=== PATIENT | male | born 1985 | race Caucasian/White ===

== ENCOUNTER 2021-02-09 21:48 | Emergency (ER) | payer SELFPAY ==
[2021-02-09 22:02] VITALS: BP 190/98; PULSE 84; RESP 15; TEMP 36.6; O2SAT 94; BMI 24.3
[2021-02-10 01:18] VITALS: BP 176/105; PULSE 74
[2021-02-10] MEDS: MECLIZINE HCL 12.5 MG TABLET 25 MG PO (01:23)
--- NOTE | 2021-02-10 04:35 | ED_ITS ---
HPI - Nausea/Vomiting/Diarrhea General Chief complaint: Nausea/Vomiting/Diarrhea Stated complaint: DIZZY HOT FLASHES THROWING UP Time Seen by Provider: 02/10/21 04:09 Source: patient Mode of arrival: Ambulatory Limitations: no limitations History of Present Illness HPI Narrative: Otherwise healthy 36-year-old gentleman presents with both vertigo and nausea present for 24 hours. Two weeks ago had an episode of vom iting diarrhea and generally feeling awful the last for up 3 days and resolved completely. 24 hours ago he woke up with diarrhea and then had episodes of vomiting diarrhea and dry heaves throughout the day. At 1 point during the day he was able to keep fluids in and began noticing that he was having more vertiginous symptoms when he was changing positions or sitting. If he was up and moving he seems to be doing well. He describes no fevers, cough, palpitations, headaches, ear pain visual changes or hearing loss. Related Data Allergies Allergy/AdvReac Type Severity Reaction Status Date / Time No Known Drug Allergies Allergy Verified 02/09/21 22:02 Review of Systems Review of Systems Narrative: Remainder of complete review of systems is otherwise unremarkable except for that included in the HPI. Patient History Social History Smoking Status: Unknown if ever smoked Smoking Status: Unknown if ever smoked alcohol intake frequency: holidays/special occasions only Substance Use Type: does not use Exam Narrative Exam Narrative: General: Alert appropriate in no acute distress, no orthostasis HEENT: Left ear is unremarkable. Right ear with dense hard wax pressed up against the tympanic membrane. No nystagmus with positional changes. Respiratory: Able to speak in full sentences, no obvious respiratory distress Cardiac: regular rate and rhythm no murmurs Skin: No obvious rashes, warm and dry Neurologic: Grossly intact no obvious asymmetries or abnormalities Psych: appropriate insight and affect, cooperative Initial Vital Signs Initial Vital Signs: Vital Signs Temperature 97.9 F 02/09/21 22:02 Pulse Rate 84 02/09/21 22:02 Respiratory Rate 15 02/09/21 22:02 Blood Pressure 190/98 H 02/09/21 22:02 Pulse Oximetry 94 02/09/21 22:02 Procedures Ear Wax Removal Right Ear: Time of procedure: 04:38 Additional Comments: Direct removal with an ear curette was attempted. Wax is firmly adhered to the tympanic membrane. Attempts at flushing with saline were ineffective. Wax was not able to be removed Course Orders Ordered: Discontinued Medications Meclizine HCl (Meclizine Hcl 12.5 Mg Tablet) 25 mg PO NOW ONE Stop: 02/10/21 01:19 Last Admin: 02/10/21 01:23 Dose: 25 mg Documented by: VILLA Ondansetron HCl (Ondansetron 4 Mg Odt Prepack) 1 bottle MISC SEEINSTR ONE Stop: 02/10/21 04:52 Last Admin: 02/10/21 05:04 Dose: 1 bottle Documented by: VILLA Vital Signs Vital signs: Vital Signs - 8 hr 02/09/21 22:02 02/10/21 01:18 Temperature 97.9 F Pulse Rate 84 74 Respiratory Rate 15 Blood Pressure 190/98 H 176/105 H Pulse Oximetry 94 MDM - Nausea/Vomiting/Diarrhea MDM Narrative Medical decision making narrative: 36-year-old gentleman likely with 2 separate issues. The vomiting and diarrhea certainly sounds viral and he is while still having some nausea able to keep some fluids down. No evidence of cardiac irregularities or acute abdominal abnormalities. The vertiginous component may well be related to the earwax densely adhered to the right tympanic membrane. Will suggest that he use some [id number]-opa-[id number] Cerumenex daily for the next week or so and then schedule appointment either with his primary care physician or urgent care to see if the rest of that wax can be removed. Regarding the nausea and vomiting, he will be given Zofran to use for the nausea and he is safe for home discharge. Discharge Plan Departure Patient Disposition: Home Clinical Impression: Nausea, Vomiting, and Diarrhea, Vertigo Cerumen impaction Qualifiers: Laterality: right Qualified Code(s): H61.21 - Impacted cerumen, right ear Instructions: Cerumen Impaction, DI for Vomiting -- Adult Activity Restrictions/Additional Instructions: Thank you for coming in today He still have earwax pressing against the tympanic membrane on the right side. You can buy nbhp-jnh-smfniec Cerumenex and put the oily drops in your right ear daily for the next week or so to loosen up that wax. You can try rinsing the wax out while your in the shower or schedule appointment with your primary care physician urgent care. You can use meclizine/Antivert as needed to help with the spinning feeling. This is dcdg-hou-csagttt and frequently sold as a seasickness medications Regarding the vomiting and diarrhea, this very much sounds like an acute virus and I suspect it will be self limited. I have given you some Zofran/ondansetron to use for nausea. If you find things are worsening rehab new symptoms, please feel free to return to the ER for further evaluation
[2021-02-10 04:50] VITALS: BP 141/89; PULSE 71; RESP 15; O2SAT 99
[2021-02-10] MEDS: ONDANSETRON 4 MG ODT PREPACK 1 BOTTLE MISC (05:04)
== END 2021-02-10 05:05 | disposition home or self-care (01) ==
PROVIDERS: Emergency Provider Emergency Medicine
DX: R42 Dizziness and giddiness (principal); R11.2 Nausea with vomiting, unspecified; R19.7 Diarrhea, unspecified; H61.21 Impacted cerumen, right ear
CPT/HCPCS: 99283

== ENCOUNTER 2023-02-05 21:45 | Emergency (ER) | payer OTHER, SELFPAY ==
[2023-02-05 21:49] VITALS: BP 151/90; PULSE 93; RESP 16; TEMP 36.5; O2SAT 99; BMI 22.8
--- NOTE | 2023-02-05 21:56 | DI.RAD.S_ITS ---
PROCEDURE: XR CHEST 2V INDICATIONS: right sided upper rib pain TECHNIQUE: 2 views of the chest were acquired. COMPARISON: None. FINDINGS: Surgical changes and devices: None. Lungs and pleura: Lungs are clear. No pleural effusions or pneumothorax. Mediastinum: Mediastinal contours are normal. Heart size is normal. Bones and chest wall: No suspicious bony abnormalities. Soft tissues appear unremarkable. IMPRESSION: 1. No acute cardiopulmonary disease. Dictated by: Codey Jeter M.D. on 02/05/2023 at 23:52 Approved by: Codey Jeter M.D. on 02/05/2023 at 23:53
[2023-02-05 22:24] LABS: Add Manual Diff / Slide Review NO; Basophils Absolute Auto 0 /uL (0-100); Basophils Percent Auto 0.6 % (0-2); Eosinophils Absolute Auto 0 /uL (0-450); Eosinophils Percent Auto 0.5 % (2-4); Hematocrit 41.7 % (41-53); Hemoglobin 14.6 g/dL (13.5-17.5); Lymphocytes Absolute Auto 1700 /uL (1100-4500); Lymphocytes Percent Auto 29.3 % (25-40); Mean Corpuscular Hemoglobin 32.3 PG (26-34); Mean Corpuscular Volume 92.5 fL (80-100); Monocytes Absolute Auto 500 /uL (0-900); Monocytes Percent Auto 9.4 % (3-14); Neutrophils Absolute Auto 3400 /uL (1500-7000); Neutrophils Percent Auto 60.2 % (50-75); Platelet Count 216 X10^3/uL (150-400); Red Blood Cell Count 4.51 X10^6/uL (4.5-5.9); Red Cell Distribution Width 13.4 % (11.6-14.8); White Blood Cell Count 5.6 X10^3/uL (4.5-11.0)
[2023-02-05 22:26] LABS: Prothrombin Time 11.6 SECONDS (10.1-12.7)
[2023-02-05 22:28] LABS: PTT Partial Thromboplastin Tim 28 SECONDS (26-36)
[2023-02-05 22:30] LABS: Alanine Aminotransferase 24 IU/L (<50); Albumin 4.4 g/dL (3.5-5.0); Albumin Globulin Ratio 1.2 (1.0-2.8); Alkaline Phosphatase 37 U/L (38-126); Aspartate Aminotransferase 26 IU/L (17-59); BUN Creatinine Ratio 18.8 (6-22); Bilirubin Total 0.5 mg/dL (0.2-1.3); Blood Urea Nitrogen 18 mg/dL (9-20); Calcium 9.2 mg/dL (8.4-10.2); Carbon Dioxide 29 mmol/L (22-32); Chloride 102 mmol/L (98-107); Creatine Kinase 97 U/L (55-170); Estimated Glomerular Filt Rate > 60 mL/min (>60); Globulin 3.6 g/dL (1.7-4.1); Glucose 124 mg/dL (70-100); HEMOLYSIS 23 (0-50); Lipase 65 U/L (23-300); Magnesium 1.9 mg/dL (1.6-2.3); Potassium 3.9 mmol/L (3.4-5.1); Sodium 137 mmol/L (137-145)
[2023-02-05 22:41] LABS: Troponin I < 0.012 ng/mL (0.01-0.034)
[2023-02-06 01:06] VITALS: O2SAT 97
[2023-02-06 01:07] VITALS: BP 119/74; PULSE 71; O2SAT 98
--- NOTE | 2023-02-06 01:25 | ED.CHESTPAIN ---
HPI - Chest Pain General Chief Complaint: Chest Pain Stated Complaint: wierd feeling under rt arm, light headed Time Seen by Provider: 02/06/23 01:14 Source: patient Mode of arrival: Ambulatory Limitations: no limitations History of Present Illness HPI narrative: Alert pleasant 38-year-old male presenting today with right-sided chest pain. He reports it started after riding his motorcycle to and from [place]. It hurts to breathe move and swallow. Has since totally subsided since being in the ED. He denies any nausea vomiting or shortness of breath although sometimes it did hurt to take a breath. He has a nonsmoker no family history of cardiac disease. He did feel nauseous but no vomiting. He is a any recent long travel. Denies any injury. Related Data Allergies Allergy/AdvReac Type Severity Reaction Status Date / Time No Known Drug Allergies Allergy Verified 02/09/21 22:02 Review of Systems Review of Systems ROS Unobtainable: All systems reviewed & are unremarkable except as noted in HPI and below Patient History Social History Smoking Status: Unknown if ever smoked Smoking Status: Unknown if ever smoked alcohol intake frequency: holidays/special occasions only Substance Use Type: does not use Exam Initial Vital Signs Initial Vital Signs: Vital Signs Temperature 97.7 F 02/05/23 21:49 Pulse Rate 93 H 02/05/23 21:49 Respiratory Rate 16 02/05/23 21:49 Blood Pressure 151/90 H 02/05/23 21:49 Pulse Oximetry 99 02/05/23 21:49 Oxygen Delivery Method Room Air 02/05/23 21:49 GENERAL: Alert pleasant well-appearing 38-year-old male and in no acute distress. HEENT: Head atraumatic,EOMI, pupils reactive, face symmetric, moist mucous membranes CARDIOVASCULAR: Regular rate and rhythm without murmurs, rubs or gallops. RESPIRATORY: Breath sounds equal bilaterally, no wheezes rales or rhonchi. ABDOMEN: Soft, nontender. Normoactive bowel sounds all 4 quadrants. No guarding or rebound. No right upper quadrant pain no epigastric pain no guarding no rebound EXTREMITIES: Normal range of motion, no clubbing or edema. Neurovascularly intact NEUROLOGICAL: Alert and oriented x4.Normal gait and speech. SKIN: Warm, dry, no laceration, no petechiae, no rashes or lesions. Scores HEART Score Heart Score history: Slightly Suspicious Heart Score EKG: Normal Heart Score Age: < 45 years old Heart Score risk factors: No known risk factors Heart Score troponin: < or = to normal limit Heart Score Total: 0 Course Orders Ordered: ED Orders 02/05/23 21:56 XR chest 2V Stat 02/05/23 21:57 EKG-12 Lead Stat 02/05/23 22:02 Complete Blood Count AUTO DIFF Stat Comprehensive Metabolic Panel Stat Lipase Stat Magnesium Stat PTT Partial Thromboplastin Carlito Stat Prothrombin Time INR Stat Troponin & CK Cardiac Panel Stat Vital Signs Vital signs: Vital Signs - 8 hr 02/06/23 01:06 02/06/23 01:07 02/06/23 01:07 Pulse Rate 71 Blood Pressure 119/74 Pulse Oximetry 97 98 Oxygen Delivery Method 02/06/23 01:30 02/06/23 01:30 Pulse Rate 58 L Blood Pressure 128/80 Pulse Oximetry 96 Oxygen Delivery Method Room Air MDM - Chest Pain Lab Data 02/05/23 22:02 02/05/23 22:02 Labs: Lab Results 02/05/23 02/05/23 02/05/23 Range/Units 22:02 22:02 22:02 WBC 5.6 (4.5-11.0) X10^3/uL RBC 4.51 (4.5-5.9) X10^6/uL Hgb 14.6 (13.5-17.5) g/dL Hct 41.7 (41-53) % MCV 92.5 (80-100) fL MCH 32.3 (26-34) PG MCHC 35.0 (30-36) % RDW 13.4 (11.6-14.8) % Plt Count 216 (150-400) X10^3/uL Neut % (Auto) 60.2 (50-75) % Lymph % (Auto) 29.3 (25-40) % [place] % (Auto) 9.4 (3-14) % Eos % (Auto) 0.5 L (2-4) % Baso % (Auto) 0.6 (0-2) % Neut # (Auto) 3400 (8849-5118) /uL Lymph # (Auto) 1700 (7873-6051) /uL [place] # (Auto) 500 (0-900) /uL Eos # (Auto) 0 (0-450) /uL Baso # (Auto) 0 (0-100) /uL PT 11.6 (10.1-12.7) SECONDS INR 1.0 (0.9-1.3) APTT 28 (26-36) SECONDS Sodium 137 (137-145) mmol/L Potassium 3.9 (3.4-5.1) mmol/L Chloride 102 (98-107) mmol/L Carbon Dioxide 29 (22-32) mmol/L BUN 18 (9-20) mg/dL Creatinine 0.96 (0.66-1.25) mg/dL Estimated GFR > 60 (>60) mL/min BUN/Creatinine Ratio 18.8 (6-22) Glucose 124 H (70-100) mg/dL Calcium 9.2 (8.4-10.2) mg/dL Magnesium 1.9 (1.6-2.3) mg/dL Total Bilirubin 0.5 (0.2-1.3) mg/dL AST 26 (17-59) IU/L ALT 24 (<50) IU/L Alkaline Phosphatase 37 L (38-126) U/L Total Creatine Kinase 97 (55-170) U/L Troponin I < 0.012 (0.01-0.034) ng/mL Total Protein 8.0 (6.3-8.2) g/dL Albumin 4.4 (3.5-5.0) g/dL Globulin 3.6 (1.7-4.1) g/dL Albumin/Globulin Ratio 1.2 (1.0-2.8) Lipase 65 (23-300) U/L Imaging Data Chest x-ray: Radiologist's Impression: PROCEDURE:? XR CHEST 2V ? INDICATIONS:? right sided upper rib pain ? TECHNIQUE:? 2 views of the chest were acquired.? ? COMPARISON:? None. ? FINDINGS:? ? Surgical changes and devices:? None.? ? Lungs and pleura:? Lungs are clear.? No pleural effusions or pneumothorax.? ? Mediastinum:? Mediastinal contours are normal.? Heart size is normal.? ? Bones and chest wall:? No suspicious bony abnormalities.? Soft tissues appear unremarkable.? ? IMPRESSION:? ? 1.? No acute cardiopulmonary disease. ? ? ? Dictated by: Codey Jeter M.D. on 02/05/2023 at 23:52 ? ? ECG Data Interpretation: Normal sinus rhythm rate 80 VT interval 152 QRS [address] changes no T-wave inversions MDM Narrative Medical decision making narrative: Patient 38-year-old male without significant past medical history presenting with right-sided pain worse with movement. He said it was not reproducible with palpation but did her certain positions for to swallow radiate up to his neck. Mild nausea no vomiting. No cardiac history heart score 0. At this time low suspicion for any acute coronary syndrome. He is had no traveling unlikely to be a pulmonary embolism. He has no right upper quadrant pain on exam but may have had a biliary attack. No elevated bilirubin liver enzymes or lipase. Non tender negative Quiroga's sinus he no need for an ultrasound at this time. However encourage patient that if he continued to have pain you may need a right upper quadrant ultrasound. Discharge Plan Departure Patient Disposition: Home Clinical Impression: Atypical chest pain Instructions: DI for Atypical Chest Pain Activity Restrictions/Additional Instructions: *You have been diagnosed with atypical chest pain *What to do: At this time if symptoms return you may need to return to the ED for further evaluation you may also require right upper quadrant ultrasound to look at your gallbladder *Continue to take medications as directed Tylenol Motrin as directed if needed for pain *Follow up with your primary care provider in 2-3 days or call [phone] *Return to ER if you should have increasing chest pain shortness of breath nausea vomiting abdominal or any new, worsening or concerning symptoms Stand Alone Forms: Patient Portal/API
[2023-02-06 01:30] VITALS: BP 128/80; PULSE 58; O2SAT 96
== END 2023-02-06 01:44 | disposition home or self-care (01) ==
PROVIDERS: Emergency Provider Emergency Medicine
DX: R07.89 Other chest pain (principal)
CPT/HCPCS: 36415; 71046; 80053; 82550; 83690; 83735; 84484; 85025; 85610; 85730; 93005; 99283; 99284

== ENCOUNTER 2024-02-11 11:28 | Emergency (ER) | payer OTHER, SELFPAY ==
[2024-02-11 11:35] VITALS: BP 134/86; PULSE 68; RESP 18; TEMP 36.8; O2SAT 96; BMI 23.0
[2024-02-11 11:54] VITALS: BP 134/85; PULSE 64; O2SAT 98
[2024-02-11 11:59] VITALS: BP 134/83; PULSE 63; RESP 14; O2SAT 98
--- NOTE | 2024-02-11 12:02 | PC.NURSE ---
patient states that he take 4 ibuprophen a day and also drinks 4-5 drinks per day. he denies a history of gallbladder issues, pancreatitis, or ulcers. He is taking prilosec for hx of gas, bloating, was supposed to have an upper GI scope but since taking prilosec.
[2024-02-11 12:11] LABS: Alanine Aminotransferase 27 IU/L (<50); Albumin 4.8 g/dL (3.5-5.0); Albumin Globulin Ratio 1.5 (1.0-2.8); Alkaline Phosphatase 32 U/L (38-126); Aspartate Aminotransferase 31 IU/L (17-59); Bilirubin Total 0.6 mg/dL (0.2-1.3); Blood Urea Nitrogen 15 mg/dL (9-20); Calcium 9.4 mg/dL (8.4-10.2); Carbon Dioxide 25 mmol/L (22-32); Chloride 106 mmol/L (98-107); Estimated Glomerular Filt Rate > 60 mL/min (>60); Globulin 3.2 g/dL (1.7-4.1); Glucose 101 mg/dL (70-100); HEMOLYSIS 16 (0-50); Lipase 70 U/L (23-300); Potassium 4.4 mmol/L (3.4-5.1); Sodium 138 mmol/L (137-145)
--- NOTE | 2024-02-11 12:21 | ED_ITS ---
HPI - Abdominal Pain General Chief Complaint: Abdominal Pain Stated Complaint: Upper right Stomach pain Time Seen by Provider: 02/11/24 12:02 Source: patient Mode of arrival: Ambulatory History of Present Illness HPI narrative: Patient here for constant right upper quadrant pain that radiates to the mid right back and up to the right shoulder. Patient has been worked up in the past for acid reflux and is on Prilosec. They were considering doing endoscopy of the stomach in the past but his symptoms resolved and it was never done. Pain is worse with drinking or eating. Has tried Motrin for pain but no improvement. Informed him not to take this if he is has acid reflux or ulcer. No black or bloody stools. No chest pain no shortness of breath no urinary complaints Related Data Previous Rx's Medication Instructions Recorded pantoprazole 40 mg tablet,delayed 40 mg PO DAILY #30 tabs 02/11/24 release (Protonix) sucralfate 1 gram tablet (Carafate) 1 g PO QAC #20 tabs 02/11/24 Allergies Allergy/AdvReac Type Severity Reaction Status Date / Time No Known Drug Allergies Allergy Verified 02/11/24 11:39 Review of Systems Review of Systems Narrative: GENERAL: negative chills, fatigue, malaise, fever, sweats. HEENT: negative sinus pain, ear pain, sore throat RESPIRATORY: negative dyspnea, cough CARDIOVASCULAR: negative chest pain, palpitations GASTROINTESTINAL: negative nausea, vomiting, positive abdominal pain : negative dysuria, frequency, hematuria MUSCULOSKELETAL: negative muscle or bony pain SKIN: negative rash, skin lesions NEUROLOGIC: negative weakness, numbness ROS Unobtainable: All systems reviewed & are unremarkable except as noted in HPI and below Patient History Social History Smoking Status: Current every day smoker Smoking Status: Current every day smoker tobacco type: smokeless tobacco alcohol intake frequency: 3 or more drinks per day Alcohol type: beer Substance Use Type: does not use Exam Narrative Exam Narrative: GENERAL: in no distress, not toxic not dyspneic HEAD: Normocephalic. EYES: Pupils equal round ENT: Mucous membranes moist. NECK: Trachea midline. CARDIOVASCULAR: Regular rate and rhythm RESPIRATORY: Clear to auscultation. Breath sounds equal bilaterally. No wheezes, rales, or rhonchi. GASTROINTESTINAL: Abdomen soft, non-tender, abdomen is soft flat nontender no peritoneal signs. No McBurney point tenderness no Quiroga's sign. No right upper quadrant or epigastric or left upper quadrant tenderness. No CVA tenderness. EXTREMITIES: No gross deformities. BACK: No flank tenderness. NEURO: AOx4. Clear speech SKIN: Warm and dry PSYCH: Not anxious, is cooperative Initial Vital Signs Initial Vital Signs: Vital Signs Temperature 98.2 F 02/11/24 11:35 Pulse Rate 68 02/11/24 11:35 Respiratory Rate 18 02/11/24 11:35 Blood Pressure 134/86 02/11/24 11:35 Pulse Oximetry 96 02/11/24 11:35 Oxygen Delivery Method Room Air 02/11/24 11:35 Course Orders Ordered: Discontinued Medications Al Hydrox/Mg Hydrox/Simethicone 20 ml/ Lidocaine HCl 15 ml 0 ml PO NOW ONE Stop: 02/11/24 12:21 Last Admin: 02/11/24 12:35 Dose: 35 ml Documented By: Sodium Chloride (Normal Saline 0.9%) 1,000 mls @ 1,000 mls/hr IV BOLUS ONE Stop: 02/11/24 13:19 Last Infusion: 02/11/24 13:39 Dose: Infused Documented By: Admin: 02/11/24 12:35 Dose: 1,000 mls/hr Documented By: Ondansetron HCl (Ondansetron 4 Mg/2 Ml Inj) 4 mg IV NOW PRN PRN Reason: Nausea And Vomiting Ondansetron HCl (Ondansetron 4 Mg Odt) 4 mg PO NOW PRN PRN Reason: Nausea And Vomiting Pantoprazole Sodium (Pantoprazole 40 Mg Vial) 40 mg IV NOW ONE Stop: 02/11/24 12:21 Last Admin: 02/11/24 12:35 Dose: 40 mg Documented By: Vital Signs Vital signs: Vital Signs - 8 hr 02/11/24 11:35 02/11/24 11:54 02/11/24 11:54 Temperature 98.2 F Pulse Rate 68 64 Respiratory Rate 18 Blood Pressure 134/86 134/85 Pulse Oximetry 96 98 Oxygen Delivery Method Room Air 02/11/24 11:59 Temperature Pulse Rate 63 Respiratory Rate 14 Blood Pressure 134/83 Pulse Oximetry 98 Oxygen Delivery Method Room Air MDM - Abdominal Pain Lab Data 02/11/24 11:48 02/11/24 11:48 Labs: Lab Results 02/11/24 Range/Units 11:48 WBC 4.5 (4.5-11.0) X10^3/uL RBC 4.47 L (4.5-5.9) X10^6/uL Hgb 14.4 (13.5-17.5) g/dL Hct 41.9 (41-53) % MCV 93.7 (80-100) fL MCH 32.3 (26-34) PG MCHC 34.5 (30-36) % RDW 12.7 (11.6-14.8) % Plt Count 208 (150-400) X10^3/uL Neut % (Auto) 58.1 (50-75) % Lymph % (Auto) 31.9 (25-40) % [place] % (Auto) 9.0 (3-14) % Eos % (Auto) 0.4 L (2-4) % Baso % (Auto) 0.6 (0-2) % Neut # (Auto) 2600 (6056-8659) /uL Lymph # (Auto) 1400 (1389-7778) /uL [place] # (Auto) 400 (0-900) /uL Eos # (Auto) 0 (0-450) /uL Baso # (Auto) 0 (0-100) /uL Sodium 138 (137-145) mmol/L Potassium 4.4 (3.4-5.1) mmol/L Chloride 106 (98-107) mmol/L Carbon Dioxide 25 (22-32) mmol/L BUN 15 (9-20) mg/dL Creatinine 0.88 (0.66-1.25) mg/dL Estimated GFR > 60 (>60) mL/min BUN/Creatinine Ratio 17.0 (6-22) Glucose 101 H (70-100) mg/dL Calcium 9.4 (8.4-10.2) mg/dL Total Bilirubin 0.6 (0.2-1.3) mg/dL AST 31 (17-59) IU/L ALT 27 (<50) IU/L Alkaline Phosphatase 32 L (38-126) U/L Total Protein 8.0 (6.3-8.2) g/dL Albumin 4.8 (3.5-5.0) g/dL Globulin 3.2 (1.7-4.1) g/dL Albumin/Globulin Ratio 1.5 (1.0-2.8) Lipase 70 (23-300) U/L Point of care testing: Urine Dip Bedside Urine Glucose Negative Bedside Urine Bilirubin - Negative Bedside Urine Ketone - Negative Urine Specific [place] 1.015 Bedside Urine Occult Blood - Negative Bedside Urine pH 6.5 Bedside Urine Protein - Negative Bedside Urine Urobilinogen - Negative Bedside Urine Nitrite - Negative Bedside Urine Leukocytes - Negative Esterase Imaging Data CT scan - abdomen/pelvis: Radiologist's Impression: [address] [address] [address] Scan Report Signed Patient: James Guerrero MR#: [id number] : 1985 Acct:[id number] Age/Sex: 39 / M Date of Service: 02/11/24 Loc: ED Accession Number: [id number] Procedure: CT abdomen pelvis w con Ordering Provider: Nito Lundy MD PROCEDURE: CT ABDOMEN PELVIS W CON INDICATIONS: right upper quadrant pain TECHNIQUE: After the administration of intravenous contrast, axial sections acquired from the lung bases to the pubic symphysis. Coronal and sagittal reformats were performed. For radiation dose reduction, the following was used: automated exposure control, adjustment of mA and/or kV according to patient size. COMPARISON: None. FINDINGS: Image quality: Diagnostic. Lower Chest: No significant findings. ABDOMEN: Liver: No solid mass. Diffusely decreased hepatic density Gallbladder: No radiopaque gallstones or wall thickening. Biliary ducts: No biliary dilation. Pancreas: No ductal dilation. Spleen: Size is within normal limits. Adrenal Glands: No adrenal nodules. Kidneys and Ureters: No hydronephrosis. No solid mass. No complex renal cystic lesion which requires follow up. Stomach and Bowel: Normal colonic caliber, without significant wall thickening. Appendix is not seen. No evidence of appendicitis. Peritoneum: No abnormal intraperitoneal fluid. No free air. Ventral Wall: No significant ventral hernia. Abdominal Nodes: No retroperitoneal or mesenteric adenopathy by size criteria. There are a few mildly prominent subcentimeter right lower quadrant lymph nodes. Vessels: Aorta and inferior vena cava are normal in size. PELVIS: Pelvic Organs: Unremarkable. Bladder: No bladder wall thickening, accounting for underdistention. Pelvic Nodes: No enlarged lymph nodes. Miscellaneous: No inguinal hernias are seen. Bones: No aggressive osseous abnormality. IMPRESSION: 1. Findings suggestive of mesenteric adenitis in the appropriate clinical setting. 2. Hepatic steatosis. Dictated by: William White M.D. on 02/11/2024 at 12:50 Approved by: William White M.D. on 02/11/2024 at 12:53 [facility] Narrative Medical decision making narrative: Patient here for constant right upper quadrant pain that radiates to the mid right back and up to the right shoulder. Patient has been worked up in the past for acid reflux and is on Prilosec. They were considering doing endoscopy of the stomach in the past but his symptoms resolved and it was never done. Pain is worse with drinking or eating. Has tried Motrin for pain but no improvement. Informed him not to take this if he is has acid reflux or ulcer. No black or bloody stools. No chest pain no shortness of breath no urinary complaints After history and exam CBC CMP lipase normal saline GI cocktail Protonix Zofran CT abdomen pelvis [facility] Medical records reviewed: No recent visit for this complaint Differential considered: Includes but not limited to cholecystitis cholelithiasis biliary colic duodenitis gastritis acid reflux pancreatitis Lab Test results independently reviewed as above. Pertinent findings: Sodium 138 potassium 4.4 BUN 15 creatinine 0.88 AST 31 ALT 27 lipase 70 urinalysis negative blood negative ketone negative nitrite negative leukocyte Imaging studies independently reviewed: CT abdomen pelvis no acute finding Consultations: none indicated at this time Treatments: GI cocktail Protonix Zofran normal saline Re-evaluations: 1:45 p.m.. Reviewed with patient results. Does feel little better after GI cocktail. Right upper quadrant discomfort better. Reviewed with him feeling lightheaded is nonspecific. Still I do not think this is viral and CT reviewed likely not mesenteric adenitis. Referral for endoscopy, Dr. Renee will be provided. Prescription for Protonix and Carafate will be provided. Return precautions reviewed and he desires discharge home Discussion: Appropriate for discharge home exam and laboratory studies are reassuring. Clinically not mesenteric adenitis as focal discomfort right upper quadrant likely gastritis. Improved with Maalox. Return precautions reviewed and he desires discharge home Diagnosis: Abdominal pain Discharge Plan Departure Patient Disposition: Home Clinical Impression: Abdominal pain Qualifiers: Abdominal location: right upper quadrant Qualified Code(s): R10.11 - Right upper quadrant pain Instructions: [place] Diet, DI for Gastritis, DI for Abdominal Pain-Adult Prescriptions: New sucralfate [Carafate] 1 gram tablet 1 g PO QAC Qty: 20 0RF pantoprazole [Protonix] 40 mg tablet,delayed release (DR/EC) 40 mg PO DAILY Qty: 30 0RF Referrals: Ashwin Renee MD [Physician] - Stand Alone Forms: Patient Portal/API, Work Release Note
[2024-02-11 12:23] LABS: Add Manual Diff / Slide Review NO; Basophils Absolute Auto 0 /uL (0-100); Basophils Percent Auto 0.6 % (0-2); Eosinophils Absolute Auto 0 /uL (0-450); Eosinophils Percent Auto 0.4 % (2-4); Hematocrit 41.9 % (41-53); Hemoglobin 14.4 g/dL (13.5-17.5); Lymphocytes Absolute Auto 1400 /uL (1100-4500); Lymphocytes Percent Auto 31.9 % (25-40); Mean Corpuscular HGB Conc 34.5 % (30-36); Mean Corpuscular Hemoglobin 32.3 PG (26-34); Mean Corpuscular Volume 93.7 fL (80-100); Monocytes Absolute Auto 400 /uL (0-900); Neutrophils Absolute Auto 2600 /uL (1500-7000); Neutrophils Percent Auto 58.1 % (50-75); Platelet Count 208 X10^3/uL (150-400); Red Blood Cell Count 4.47 X10^6/uL (4.5-5.9); Red Cell Distribution Width 12.7 % (11.6-14.8); White Blood Cell Count 4.5 X10^3/uL (4.5-11.0)
[2024-02-11] MEDS: PANTOPRAZOLE 40 MG VIAL IV (12:35)
[2024-02-11] MEDS: MAG HYDROX/ALUMINUM/SIMETH SUS 20 ML, LIDOCAINE VISCOUS 2% 15 ML PO (12:35)
[2024-02-11] MEDS: SODIUM CHLORIDE 0.9% 1,000 ML 1000 ML IV (12:35)
[2024-02-11 14:10] VITALS: BP 131/85; PULSE 75; RESP 14; O2SAT 98
== END 2024-02-11 14:11 | disposition home or self-care (01) ==
PROVIDERS: Emergency Provider Emergency Medicine
DX: R10.11 Right upper quadrant pain (principal)
CPT/HCPCS: 36415; 74177; 80053; 81003; 83690; 85025; 96361; 96374; 99284; J2470; Q9967

== ENCOUNTER → 2024-05-16 13:41 | Outpatient (CLI) | payer OTHER, SELFPAY ==
--- NOTE | 2024-05-16 13:43 | DI.RAD.S_ITS ---
PROCEDURE: XR RIBS RT MIN 3V W CXR 1V INDICATIONS: Rib injury/right rib pain -predominantly anterior TECHNIQUE: 4 views of the ribs were acquired, along with a single view chest. COMPARISON: None. FINDINGS: Surgical changes and devices: None. Bones and chest wall: No fractures or dislocations. No suspicious bony lesions. Overlying soft tissues appear unremarkable. Lungs and pleura: No pleural effusions or pneumothorax. Lungs appear clear. Mediastinum: Mediastinal contours appear normal. Heart size is normal. IMPRESSION: No displaced rib fractures or pneumothorax. Dictated by: Deion Ponce M.D. on 05/16/2024 at 14:24 Approved by: Deion Ponce M.D. on 05/16/2024 at 14:25
== END ==
PROVIDERS: Referring Provider Physician Assistant Surgical; Visit Provider Physician Assistant Surgical
DX: R07.81 Pleurodynia (principal)
CPT/HCPCS: 71101

== ENCOUNTER 2024-09-24 09:17 | Emergency (ER) | payer OTHER, SELFPAY ==
[2024-09-24 09:26] VITALS: BP 148/91; PULSE 80; RESP 13; TEMP 36.6; O2SAT 98; BMI 23.0
[2024-09-24 10:03] LABS: Add Manual Diff / Slide Review NO; Basophils Absolute Auto 0 /uL (0-100); Basophils Percent Auto 0.7 % (0-2); Eosinophils Absolute Auto 100 /uL (0-450); Eosinophils Percent Auto 1.3 % (2-4); Hematocrit 44.6 % (41-53); Hemoglobin 15.3 g/dL (13.5-17.5); Lymphocytes Absolute Auto 1600 /uL (1100-4500); Mean Corpuscular HGB Conc 34.3 % (30-36); Mean Corpuscular Hemoglobin 32.1 PG (26-34); Mean Corpuscular Volume 93.4 fL (80-100); Monocytes Absolute Auto 300 /uL (0-900); Monocytes Percent Auto 6.1 % (3-14); Neutrophils Absolute Auto 3100 /uL (1500-7000); Neutrophils Percent Auto 59.9 % (50-75); Platelet Count 231 X10^3/uL (150-400); Red Blood Cell Count 4.77 X10^6/uL (4.5-5.9); Red Cell Distribution Width 12.7 % (11.6-14.8); White Blood Cell Count 5.1 X10^3/uL (4.5-11.0)
[2024-09-24 10:22] LABS: Alanine Aminotransferase 29 IU/L (<50); Albumin 4.7 g/dL (3.5-5.0); Albumin Globulin Ratio 1.3 (1.0-2.8); Alkaline Phosphatase 42 U/L (38-126); Aspartate Aminotransferase 31 IU/L (17-59); BUN Creatinine Ratio 18.7 (6-22); Bilirubin Total 0.3 mg/dL (0.2-1.3); Blood Urea Nitrogen 17 mg/dL (9-20); Calcium 9.6 mg/dL (8.4-10.2); Carbon Dioxide 28 mmol/L (22-32); Chloride 101 mmol/L (98-107); Estimated Glomerular Filt Rate > 60 mL/min (>60); Globulin 3.6 g/dL (1.7-4.1); Glucose 110 mg/dL (70-100); HEMOLYSIS < 15 (0-50); Lipase 70 U/L (23-300); Sodium 137 mmol/L (137-145); Total Protein 8.3 g/dL (6.3-8.2)
--- NOTE | 2024-09-24 11:42 | ED_ITS ---
HPI - Abdominal Pain <Graciela Banda PA-C - Last Filed: 09/24/24 13:20> General Chief Complaint: Abdominal Pain Stated Complaint: upper r abd pain, feels hot/cold Time Seen by Provider: 09/24/24 11:18 Source: patient Mode of arrival: Ambulatory History of Present Illness HPI narrative: Mr. Guerrero is a pleasant 39-year-old male with a past medical history of hepatic steatosis, gastritis who presents to the emergency department for right upper quadrant abdominal pain x a few weeks. The right upper quadrant abdominal pain got last night and he describes it as a ?hot feeling? which prompted his arrival to the emergency department. States that the pain does not radiate and is associated with mild nausea. Reports that Motrin improved the pain slightly. Hunching forward and moving around makes the pain worse. Reports that drinking exacerbates the pain but eating does not. Denies vomiting, fevers, chills, diarrhea, constipation, hematuria, dysuria, chest pain, shortness of breath, flu-like symptoms. Admits to drinking approximately 6 beers every evening, no drug use, occasional chewing tobacco and vaping. No prior surgeries. Related Data Previous Rx's Medication Instructions Recorded pantoprazole 40 mg tablet,delayed 40 mg PO DAILY #30 tabs 02/11/24 release (Protonix) sucralfate 1 gram tablet (Carafate) 1 g PO QAC #20 tabs 02/11/24 pantoprazole 20 mg tablet,delayed 20 mg PO DAILY #30 tabs 09/24/24 release (Protonix) Allergies Allergy/AdvReac Type Severity Reaction Status Date / Time No Known Drug Allergies Allergy Verified 02/11/24 11:39 Review of Systems <Graciela Banda PA-C - Last Filed: 09/24/24 13:20> Review of Systems ROS Unobtainable: All systems reviewed & are unremarkable except as noted in HPI and below Patient History <Graciela Banda PA-C - Last Filed: 09/24/24 13:20> Social History Smoking Status: Current every day smoker Smoking Status: Current every day smoker tobacco type: smokeless tobacco alcohol intake frequency: 3 or more drinks per day Alcohol type: beer Exam <Graciela Banda PA-C - Last Filed: 09/24/24 13:20> Narrative Exam Narrative: GENERAL: 39 year old patient appears stated age. Well-developed patient, in no acute distress. HEAD: Atraumatic. Normocephalic. NECK: Trachea midline. Cervical ROM intact. CARDIOVASCULAR: Regular rate and rhythm. RESPIRATORY: ?Nonlabored respirations. ?Speaking in clear, full sentences. ?Clear to auscultation. Breath sounds equal bilaterally. No wheezes, rales, or rhonchi. ? GASTROINTESTINAL: Abdomen soft, non-tender, nondistended. Subjective pain with palpation of right upper quadrant but negative Quiroga's sign. EXTREMITIES: No edema or joint tenderness. BACK: No CVA tenderness. NEURO: AOx3. ?Clear speech. ?Moves all 4 extremities appropriately. SKIN: No rash or erythema of visible areas Initial Vital Signs Initial Vital Signs: Vital Signs Temperature 97.9 F 09/24/24 09:26 Pulse Rate 80 09/24/24 09:26 Respiratory Rate 13 09/24/24 09:26 Blood Pressure 148/91 H 09/24/24 09:26 Pulse Oximetry 98 09/24/24 09:26 Oxygen Delivery Method Room Air 09/24/24 09:26 <DO Danyel Barker Last Filed: 09/25/24 20:25> Initial Vital Signs Initial Vital Signs: Vital Signs Temperature 97.9 F 09/24/24 09:26 Pulse Rate 80 09/24/24 09:26 Respiratory Rate 13 09/24/24 09:26 Blood Pressure 148/91 H 09/24/24 09:26 Pulse Oximetry 98 09/24/24 09:26 Oxygen Delivery Method Room Air 09/24/24 09:26 Course <Graciela Banda PA-C - Last Filed: 09/24/24 13:20> Orders Ordered: Discontinued Medications Ondansetron HCl (Ondansetron 4 Mg/2 Ml Inj) 4 mg IV NOW PRN PRN Reason: Nausea And Vomiting Ondansetron HCl (Ondansetron 4 Mg Odt) 4 mg PO NOW PRN PRN Reason: Nausea And Vomiting Vital Signs Vital signs: Vital Signs - 8 hr 09/24/24 09:26 Temperature 97.9 F Pulse Rate 80 Respiratory Rate 13 Blood Pressure 148/91 H Pulse Oximetry 98 Oxygen Delivery Method Room Air <DO Danyel Barker Last Filed: 09/25/24 20:25> Orders Ordered: Discontinued Medications Ondansetron HCl (Ondansetron 4 Mg/2 Ml Inj) 4 mg IV NOW PRN PRN Reason: Nausea And Vomiting Ondansetron HCl (Ondansetron 4 Mg Odt) 4 mg PO NOW PRN PRN Reason: Nausea And Vomiting Vital Signs Vital signs: Vital Signs - 8 hr 09/24/24 09:26 Temperature 97.9 F Pulse Rate 80 Respiratory Rate 13 Blood Pressure 148/91 H Pulse Oximetry 98 Oxygen Delivery Method Room Air MDM - Abdominal Pain <Graciela Banda PA-C - Last Filed: 09/24/24 13:20> Medical Records Attestation: I reviewed the patient's medical records. Lab Data 09/24/24 09:38 09/24/24 09:38 Labs: Lab Results 09/24/24 09/24/24 Range/Units 09:38 11:45 WBC 5.1 (4.5-11.0) X10^3/uL RBC 4.77 (4.5-5.9) X10^6/uL Hgb 15.3 (13.5-17.5) g/dL Hct 44.6 (41-53) % MCV 93.4 (80-100) fL MCH 32.1 (26-34) PG MCHC 34.3 (30-36) % RDW 12.7 (11.6-14.8) % Plt Count 231 (150-400) X10^3/uL Neut % (Auto) 59.9 (50-75) % Lymph % (Auto) 32.0 (25-40) % [place] % (Auto) 6.1 (3-14) % Eos % (Auto) 1.3 L (2-4) % Baso % (Auto) 0.7 (0-2) % Neut # (Auto) 3100 (0331-2310) /uL Lymph # (Auto) 1600 (8016-4167) /uL [place] # (Auto) 300 (0-900) /uL Eos # (Auto) 100 (0-450) /uL Baso # (Auto) 0 (0-100) /uL Sodium 137 (137-145) mmol/L Potassium 4.0 (3.4-5.1) mmol/L Chloride 101 (98-107) mmol/L Carbon Dioxide 28 (22-32) mmol/L BUN 17 (9-20) mg/dL Creatinine 0.91 (0.66-1.25) mg/dL Estimated GFR > 60 (>60) mL/min BUN/Creatinine Ratio 18.7 (6-22) Glucose 110 H (70-100) mg/dL Calcium 9.6 (8.4-10.2) mg/dL Total Bilirubin 0.3 (0.2-1.3) mg/dL AST 31 (17-59) IU/L ALT 29 (<50) IU/L Alkaline Phosphatase 42 (38-126) U/L Total Protein 8.3 H (6.3-8.2) g/dL Albumin 4.7 (3.5-5.0) g/dL Globulin 3.6 (1.7-4.1) g/dL Albumin/Globulin Ratio 1.3 (1.0-2.8) Lipase 70 (23-300) U/L Urine RBC 0-1/hpf (0-5/HPF) Urine WBC 0-1/hpf (0-5/HPF) Ur Squamous Epith Cells 0-1 /hpf (0-5/HPF) Urine Bacteria Occasional (0-1) (None) Ur Culture Indicated? Cult not indicated Vol Urine Centrifuged 10ml (spun) Point of care testing: Urine Dip Bedside Urine Glucose Negative Bedside Urine Bilirubin - Negative Bedside Urine Ketone - Negative Urine Specific [place] 1.015 Bedside Urine Occult Blood - Negative Bedside Urine pH 6.0 Bedside Urine Protein +/- 15 Bedside Urine Urobilinogen - Negative Bedside Urine Nitrite - Negative Bedside Urine Leukocytes - Negative Esterase Imaging Data RUQ US: Radiologist's Impression: PROCEDURE: US ABDOMEN LIMITED INDICATIONS: RIGHT UPPER QUADRANT PAIN TECHNIQUE: Real-time scanning was performed of the abdominal and retroperitoneal organs, with image documentation. COMPARISON: None. FINDINGS: Liver: Dense liver with loss of portal wall echogenicity. Gallbladder: No gallstones. No wall thickening. No pericholecystic edema. Negative sonographic Quiroga's sign. Biliary ducts: Intrahepatic bile ducts are non-dilated. Extrahepatic bile duct caliber measures 6 mm. Normal is 6-7 mm or less in diameter, or 10 mm or less post-cholecystectomy. Pancreas: Visualized portions of the pancreas are sonographically normal. Miscellaneous: No free abdominal fluid. IMPRESSION: Moderate hepatic steatosis. Otherwise normal exam. No gallbladder pathology. MDM Narrative Medical decision making narrative: 39-year-old male with a past medical history of hepatic steatosis, gastritis who presents to the emergency department for right upper quadrant abdominal pain x a few weeks. Differential diagnosis includes but is not limited to cholelithiasis, biliary colic, hepatic steatosis, pancreatitis, GERD, peptic ulcer disease, gastritis, etc. On exam patient is in no acute distress, nontoxic appearing, vital signs appropriate. He is subjective pain in the right upper quadrant but no Quiroga's sign. Pain is exacerbated by movement. He does drink 6 pack of beer every evening which he acknowledges does not help with the pain. He declines any medications at this time. Labs were obtained in triage which were unremarkable, we will add on right upper quadrant ultrasound to rule out cholelithiasis. Ultrasound reveals moderate hepatic steatosis. No gallbladder pathology. UA negative for blood or infection. Labs overall reassuring with normal WBC count, normal lipase renal function and liver function. Suspect patient's symptoms related to potential GERD/gastritis coupled with his hepatic steatosis. We will initiate pantoprazole, recommended decrease alcohol spicy foods, fatty foods and follow up with the primary care doctor and surgeon for endoscopy. Patient's abdominal exam is benign. He is feeling better. We discussed strict ED return precautions. He verbalized understanding of all information agreeable with the plan. He is stable for discharge home. <Asmita Quiles, DO - Last Filed: 09/25/24 20:25> Lab Data Labs: Lab Results 09/24/24 09/24/24 Range/Units 09:38 11:45 WBC 5.1 (4.5-11.0) X10^3/uL RBC 4.77 (4.5-5.9) X10^6/uL Hgb 15.3 (13.5-17.5) g/dL Hct 44.6 (41-53) % MCV 93.4 (80-100) fL MCH 32.1 (26-34) PG MCHC 34.3 (30-36) % RDW 12.7 (11.6-14.8) % Plt Count 231 (150-400) X10^3/uL Neut % (Auto) 59.9 (50-75) % Lymph % (Auto) 32.0 (25-40) % [place] % (Auto) 6.1 (3-14) % Eos % (Auto) 1.3 L (2-4) % Baso % (Auto) 0.7 (0-2) % Neut # (Auto) 3100 (5546-6281) /uL Lymph # (Auto) 1600 (8384-5562) /uL [place] # (Auto) 300 (0-900) /uL Eos # (Auto) 100 (0-450) /uL Baso # (Auto) 0 (0-100) /uL Sodium 137 (137-145) mmol/L Potassium 4.0 (3.4-5.1) mmol/L Chloride 101 (98-107) mmol/L Carbon Dioxide 28 (22-32) mmol/L BUN 17 (9-20) mg/dL Creatinine 0.91 (0.66-1.25) mg/dL Estimated GFR > 60 (>60) mL/min BUN/Creatinine Ratio 18.7 (6-22) Glucose 110 H (70-100) mg/dL Calcium 9.6 (8.4-10.2) mg/dL Total Bilirubin 0.3 (0.2-1.3) mg/dL AST 31 (17-59) IU/L ALT 29 (<50) IU/L Alkaline Phosphatase 42 (38-126) U/L Total Protein 8.3 H (6.3-8.2) g/dL Albumin 4.7 (3.5-5.0) g/dL Globulin 3.6 (1.7-4.1) g/dL Albumin/Globulin Ratio 1.3 (1.0-2.8) Lipase 70 (23-300) U/L Urine RBC 0-1/hpf (0-5/HPF) Urine WBC 0-1/hpf (0-5/HPF) Ur Squamous Epith Cells 0-1 /hpf (0-5/HPF) Urine Bacteria Occasional (0-1) (None) Ur Culture Indicated? Cult not indicated Vol Urine Centrifuged 10ml (spun) Point of care testing: Urine Dip Bedside Urine Glucose Negative Bedside Urine Bilirubin - Negative Bedside Urine Ketone - Negative Urine Specific [place] 1.015 Bedside Urine Occult Blood - Negative Bedside Urine pH 6.0 Bedside Urine Protein +/- 15 Bedside Urine Urobilinogen - Negative Bedside Urine Nitrite - Negative Bedside Urine Leukocytes - Negative Esterase Discharge Plan Departure Patient Disposition: Home Clinical Impression: Hepatic steatosis, Abdominal pain, RUQ Instructions: DI for Nonalcoholic Fatty Liver Disease Activity Restrictions/Additional Instructions: Dear Mr. Guerrero, Thank you for coming to the emergency department. Today you were evaluated for right upper abdominal pain/hot feeling. Your ultrasound revealed no problems with your gallstones but it does show fatty liver. I suspect her symptoms could be related to possible gastritis or GERD so it is very important follow up with the primary care doctor and to have an endoscopy performed by general surgeon or a GI doctor. Please use the prescribed pantoprazole, decrease alcohol and fatty/spicy foods, and increase healthy foods/vegetables and exercise. Please follow up with your primary care doctor within the next 2-3 days for ER follow-up. (If you do not have a PCP you can call [phone]. ?to schedule an appointment with an [facility] Primary Care Provider) IF YOU DEVELOP ANY NEW OR WORSENING SYMPTOMS, RETURN TO THE ER! Please read the attached instructions, they highlight more specific treatments and interventions for you at home. Thank you for letting me participate in your care, Graciela Banda PA-C Prescriptions: New pantoprazole [Protonix] 20 mg tablet,delayed release (DR/EC) 20 mg PO DAILY Qty: 30 0RF No Action sucralfate [Carafate] 1 gram tablet 1 g PO QAC Qty: 20 0RF pantoprazole [Protonix] 40 mg tablet,delayed release (DR/EC) 40 mg PO DAILY Qty: 30 0RF Stand Alone Forms: Patient Portal/API/Survey ED Sign-out <Asmita Quiles, - Last Filed: 09/25/24 20:25> Cosign ED Attending Cosignature Attestation: I was available for consultation.
[2024-09-24 12:24] LABS: Bacteria Urine Occasional (0-1); Culture Indicated Urine Cult Not Indicated; RBC Urine 0-1/HPF (0-5/HPF); Squamous Epithelial Cell Urine 0-1 /HPF (0-5/HPF); Urine Volume 10mL (spun); WBC Urine 0-1/HPF (0-5/HPF)
[2024-09-24 13:18] VITALS: BP 129/82; PULSE 62; RESP 16; O2SAT 96
== END 2024-09-24 13:25 | disposition home or self-care (01) ==
PROVIDERS: Emergency Medicine; Emergency Provider Physician Assistant
DX: R10.11 Right upper quadrant pain (principal); K76.0 Fatty (change of) liver, not elsewhere classified; F10.90 Alcohol use, unspecified, uncomplicated; F17.290 Nicotine dependence, other tobacco product, uncomplicated
CPT/HCPCS: 36415; 76705; 80053; 81003; 81015; 83690; 85025; 99281; 99284